=== PATIENT | female | born 1950 | race Caucasian/White ===

== ENCOUNTER 2020-11-30 14:10 | Emergency (ER) | payer MEDICARE ==
[~2020-11-30] VITALS: Ht 170.2 cm; Wt 112.6 kg
[~2020-11-30 14:10] MED LIST: AMLO-211 PO; FENO145T32 PO; HYDR-2214 PO; LISI2.5T PO; LOSA25TA25 PO; METF500T17 PO; NAPR-850 PO; OMEP10CA5 PO; PHEN-582 PO
--- NOTE | 2020-11-30 15:10 | NUR ---
PT AMBULATORY WITH STEADY GAIT TO BATHROOM TO PROVIDE UA. UA COLLECTED AND SENT TO LAB.
[2020-11-30 15:28] LABS: BASOPHILS % (AUTO) 1 % (0-1); EOSINOPHILS % (AUTO) 1 % (1-7); LYMPHOCYTES % (AUTO) 8 % (22-44); MEAN CORPUSCULAR HEMOGLOBIN 27.8 pg (27.0-34.8); MEAN CORPUSCULAR HGB CONC 33.5 g/dL (32.4-35.8); MEAN PLATELET VOLUME 7.6 fL (7.4-10.4); MONOCYTES % (AUTO) 9 % (2-9); NEUTROPHILS % (AUTO) 81 % (42-75); PLATELET COUNT 364 x10^3/uL (130-400); RED BLOOD COUNT 4.25 x10^6/uL (3.82-5.3); RED CELL DISTRIBUTION WIDTH 15.7 % (9.6-15.2)
[2020-11-30 15:31] LABS: MD NO
[2020-11-30 15:38] LABS: ALBUMIN 2.9 g/dL (3.4-5.0); ANION GAP 11 mmol/L (5-15); CALCIUM 9.7 mg/dL (8.5-10.1); CHLORIDE 101 mmol/L (98-107); CREATININE 1.11 mg/dL (0.55-1.02)
[2020-11-30 15:58] LABS: MICROSCOPIC INDICATED
--- NOTE | 2020-11-30 17:07 | NUR ---
Task RN: Pt currently resting on Site Tour. No acute distress noted. Pt chatting pleasantly with RN, CYNTHIA x 4. Skin pink, warm and dry. Resp even and unlabored. Pt on cont bp and SPO2 monitors. Pt aware we are waiting for lab results. Warm blanket provided and patient positioned for comfort. Denies any other needs. Call light within reach.
[2020-11-30] MEDS ORDERED: FOSFOMYCIN 3 GM PACKET ONE (17:49)
[2020-11-30 17:54] VITALS: BP 124/55
[2020-11-30] MEDS ORDERED: FOSFOMYCIN 3 GM PACKET PO ONE (18:00)
--- NOTE | 2020-11-30 18:22 | NUR ---
NO S/S OF ABX RXN NOTED. DC EDUCATION PROVIDED, PT DEMONSTRATES UNDERSTANDING. PT AMBULATED STEADILY TO DC WITH RN
== END 2020-11-30 18:24 | disposition home or self-care (01) ==
LOC: ED 14:57
DX: N30.00 Acute cystitis without hematuria (principal); R51.9 Headache, unspecified; I10 Essential (primary) hypertension; E11.9 Type 2 diabetes mellitus without complications
CPT/HCPCS: 36415; 80048; 81001; 82040; 85025; 87077; 87086; 87186; 93005; 99284